=== PATIENT | male | born 1965 | race Native Hawaiian/Other Pacific Islander ===

== ENCOUNTER 2022-07-03 17:00 | Emergency (ER) | payer OTHER ==
[~2022-07-03] VITALS: Ht 185.4 cm; Wt 81.6 kg
[2022-07-03] MEDS ORDERED: AMIODARONE HYD200 MG PO (17:27)
[2022-07-03] MEDS ORDERED: VAZALORE81 MG PO (17:50)
[2022-07-03] MEDS ORDERED: LIPITOR80 MG PO (17:51)
[2022-07-03] MEDS ORDERED: LOPERAMIDE2 MG PO (17:52)
[2022-07-03] MEDS ORDERED: CVS NICOTI14 MG/241 TD (17:52)
[2022-07-03] MEDS ORDERED: JANTOVEN5 MG PO (17:54)
[2022-07-03 17:59] LABS: PLATELET COUNT 305 K/uL (142-355)
[2022-07-03 18:09] LABS: POTASSIUM 3.7 mmol/L (3.6-5.2); SODIUM 141 mmol/L (136-145)
[2022-07-04 07:32] VITALS: TEMP 98.3
[2022-07-04 12:30] VITALS: BP 118/78
== END 2022-07-04 12:30 | disposition still patient (30) ==
LOC: ED 17:00
PROVIDERS: Emergency Medicine Emergency Medical Services
DX: R46.89 Other symptoms and signs involving appearance and behavior (principal); R45.850 Homicidal ideations; R45.851 Suicidal ideations; Z20.822 Contact with and (suspected) exposure to COVID-19
CPT/HCPCS: 80053; 80143; 80179; 80307; 80320; 85027; 85610; 87635; 93005; 99285; U0003